=== PATIENT | female | born 1985 | race Caucasian/White ===

== ENCOUNTER 2020-10-29 08:36 | Outpatient (CLI) | payer BC ==
[2020-10-29] MEDS ORDERED: OMNIPAQUE 300 MG/ML, 10ML VIAL ONE (09:00)
== END 2020-10-29 23:59 | disposition home or self-care (01) ==
LOC: RAD 08:36
PROVIDERS: ATTEND Specialist
DX: N97.9 Female infertility, unspecified (principal)
CPT/HCPCS: 58340; 74740; Q9967